=== PATIENT | female | born 1955 | race Caucasian/White ===

== ENCOUNTER → 2016-12-16 | Outpatient (CLI) | payer OTHER ==
[~2016-12-16] MED LIST: AZOR 10-20 MG1 UDTAB PO; CLARITIN10 M1 PO; DESYREL100 MG PO; DUONEB 2.5-0.5 M3 ML NEB; K-DUR10 MEQ PO; LASIX20 MG PO; LEVAQUIN PO; PREDNISONE PO; SYMBICORT INH
--- NOTE | ~2016-12-16 | CR181 ---
[facility] A Service of [facility] RADIOLOGY TEXT RESULTS PATIENT: KELSI MAXWELL LOCATION: [facility] : 55 UNIT #: [id number] AGE: [address]: AIDA VALLE APRN SEX: F ORDER DR: [id number] [address] [address] [id number] O MR#: [id number] Acc #: [id number] NAME: KELSI MAXWELL. : 1955 SEX: F STUDY DATE/TIME: 12/16/2016 12:38 [facility] ROOM: STUDY DESCRIPTION: CR Lumbar Spine 2 or 3 Views Attending Physician: Aida Valle Aprn Referring Physician: Aida Valle Aprn Ordering Physician: Aida Valle Aprn Primary Care Physician: Aida Valle Aprn MEDICAL IMAGING REPORT This report is preliminary unless electronic signature is present. EXAM Three views lumbar spine. Date 12/16/2016 HISTORY Low back pain after falling on 12/07/2016. COMPARISON None. FINDINGS No lumbar spine fracture or subluxation is seen. Disk space height appears well preserved. Mild degenerative facet arthropathy at L4-5 on the right and bilateral L5-S1. Calcific atherosclerosis is present within the abdominal aorta, and probable bilateral renal hilar vascular calcification is noted. No sacroiliac joint diastasis is seen. IMPRESSION No acute lumbar spine findings. L4-5 and L5-S1 facet arthropathy. Dictated by... Tash Connelly M.D. THIS IS AN ELECTRONICALLY VERIFIED REPORT Tash Connelly M.D. at 12/19/2016 8:33 AM HENRY/jewell TD: 12/16/2016 20:16 [facility] A Service [facility] RADIOLOGY TEXT RESULTS PATIENT: KELSI MAXWELL LOCATION: [facility] : 55 UNIT #: [id number] AGE: [address]: AIDA VALLE APRN SEX: F ORDER DR: JOB #: [id number] MEDICAL IMAGING REPORT Page 1 of 1
--- NOTE | ~2016-12-16 | CR170 ---
[facility]. [facility] A Service of [facility] RADIOLOGY TEXT RESULTS PATIENT: KELSI MAXWELL LOCATION: [facility] : 55 UNIT #: [id number] AGE: [address]: AIDA VALLE APRN SEX: F ORDER DR: [id number] [place] [id number] O MR#: [id number] Acc #: [id number] NAME: KELSI MAXWELL. : 1955 SEX: F STUDY DATE/TIME: 12/16/2016 12:38 UNIT: [facility] ROOM: STUDY DESCRIPTION: CR Knee 2 Views Rt Attending Physician: Aida Valle Aprn Referring Physician: Aida Valle Aprn Ordering Physician: Aida Valle Aprn Primary Care Physician: Aida Valle Aprn MEDICAL IMAGING REPORT This report is preliminary unless electronic signature is present. EXAM Two views right knee. Date: 12/16/2016 HISTORY Fell on 12/07/2016. Right knee pain. COMPARISON STUDIES None. FINDINGS No fracture, joint dislocation or joint effusion is seen. Mild medial compartment joint space narrowing. No appreciable osteophyte formation. No osteolytic or osteoblastic abnormality. IMPRESSION Mild degenerative medial compartment joint space narrowing. No acute abnormality of the right knee. Dictated by... Tash Connelly M.D. THIS IS AN ELECTRONICALLY VERIFIED REPORT Tash Connelly M.D. at 12/19/2016 8:33 AM HENRY/jewell TD: 12/16/2016 20:11 JOB #: [id number] [facility]. [facility] A Service [facility] RADIOLOGY TEXT RESULTS PATIENT: KELSI MAXWELL LOCATION: [facility] : 55 UNIT #: [id number] AGE: [address]: AIDA VALLE APRN SEX: F ORDER DR: MEDICAL IMAGING REPORT Page 1 of 1
== END | disposition home or self-care (01) ==
LOC: SRAD 12:29
DX: M54.5 Low back pain (principal); M25.561 Pain in right knee; M17.11 Unilateral primary osteoarthritis, right knee; M46.96 Unspecified inflammatory spondylopathy, lumbar region; M46.97 Unspecified inflammatory spondylopathy, lumbosacral region
CPT/HCPCS: 72100; 73560